=== PATIENT | male | born 1990 | race Two or more races ===

== ENCOUNTER 2024-03-06 19:42 | Emergency (ER) | payer OTHER ==
[~2024-03-06] VITALS: Ht 144.8 cm; Wt 41.7 kg
--- NOTE | 2024-03-06 20:18 | ED.PDOC ---
History of Present Illness(SKN HPI Comments HPI: Poor Historian: 33-year-old male with history of cerebral palsy presents to the emergency department with his mother for evaluation of some mass on his left buttock that is bleeding. Mother states that the stool is brown in color. However there is some oozing of blood from this swelling area on his left buttock area. Patient had a nonspecific mild fall few days ago. They have noticed this swelling in the last three days. Vitals: Temp:97.9 F Heart rate: 122 RR: 18 BP: 122/69 02 sat: 95 % on room air PMH: cerebral palsy PSH: denies social history: DENIES tobacco use, DENIES ETOH use, DENIES drug use medications: vitamins allergies: NKDA REVIEW OF SYSTEMS: CONSTITUTIONAL: Denies acute: fever, diaphoresis, HEAD: Denies acute: headache, photophobia Eyes: Denies acute: Double vision, vision loss, eye pain, eye discharge. EARS: Denies acute: tinnitus, hearing loss, ear discharge, ear pain, THROAT: Denies acute: sore throat, swelling, difficulty swallowing , pain with swallowing, change in voice. NECK: Denies acute: neck pain, neck swelling, stiff neck. HEART: Denies acute : chest pain, palpitations, LUNGS: Denies acute: SOB, wheezing, cough, hemoptysis ABDOMEN: Denies acute: abdominal pain, Nausea, Vomiting, diarrhea, melena , hematemesis, hematochezia SKIN: Denies acute: rash, redness, lesions, itchiness. EXTREMITIES: Denies acute: calf pain, numbness, tingling, weakness, denies pain in extremity. Denies acute: Low back pain. Neuro: Denies acute: focal neurological deficit, motor or sensory focal neurological deficit, tremors, seizure like activity, confusion, dizziness, change in mental status, loss of bowel or bladder function, cauda equina like symptoms. : Denies acute: dysuria, hematuria, flank pain, increase in urinary frequency. PSYCH: Denies acute: hallucination, suicidal ideation, homicidal ideation. PHYSICAL EXAM: General: Mild to moderate acute distress, awake and alert. Head: normocephalic, atraumatic. Neck: supple, trachea is midline, no swelling. Throat: Normal phonation. Eyes:, no erythema, no purulent discharge, no proptosis, no icterus. Heart: regular tachycardia, no significant murmur appreciated. Lungs: no apparent respiratory distress, No wheezing, no rhonchi, no crackles. No stridors Clear to auscultation bilaterally. Abdomen: non tender to palpation, non distended, soft, no guarding, no rebound, + bowel sounds. Neuro: Awake, Alert, oriented to name, self, situation, follows commands GCS=15. Speech is normal. Skin: no petechia, no purpura, no cyanosis, non-pale, not jaundice. Lower extremities: --no - Pitting edema no deformity, no focal swelling, no calf TTP. Makes eye contact. moves all four extremities. Face: no apparent facial droop. Ambulating in the ED independently. Evaluation of the area of complaint. There is noted swelling the appears to be hematoma has some blood drainage from the center of the mass of the bottom of his left buttock. The area is tender to palpation and erythematous. Some parts of the mass/hematoma are fluctuant. Chief Complaint: abscess Time Seen by MD: 20:37 Primary Care Provider: LINDA History of Present Illness: Nurses Notes, Allergies Allergies: Coded Allergies: NO KNOWN ALLERGIES (Unverified , 04/13/13) Information Source: Patient, Relative (Mother) Mode of Arrival: Ambulatory Brought in by: mother Past Medical History Past Medical History (Other): cerebral palsy Surgical History: Denies all surgeries Family History Family History: Unobtainable Social History Smoker: Quit Greater Than 1 Year Alcohol: Denies ETOH Use Drugs: Denies Drug Use Lives In: Home Was a procedure done? Was a procedure done?: No Differential Diagnosis (INTG) Differential Diagnosis: Cellulitis, Hematoma, Insect Envenomation, Puncture Wound Differential Diagnosis: Abscess, Gangrene Differential Diagnosis: Neurovascular Injury Abscess: Bacteremia Differential Diagnosis: Osteomyelitis X-Ray, Labs, Meds, VS Vital Signs Date Time Temp Pulse Resp B/P (MAP) Pulse Ox O2 Delivery O2 Flow Rate FiO2 03/06/24 22:03 97.6 85 16 96/55 (69) 97 97.6 03/06/24 20:04 97.9 122 18 122/69 (86) 95 Lab Test 03/06/24 20:55 Range/Units White Blood Count 8.8 4.4-10.8 10^3/uL Red Blood Count 5.27 4.5-5.90 10^6/uL Hemoglobin 15.0 13.5-17.5 g/dL Hematocrit 43.8 41.0-53.0 % Mean Corpuscular Volume 83.1 80.0-100.0 fL Mean Corpuscular Hemoglobin 28.5 28.0-32.0 pg Mean Corpuscular Hemoglobin Concent 34.3 32.0-36.0 g/dL Red Cell Distribution Width 13.0 11.8-14.3 % Platelet Count 442 140-450 10^3/uL Mean Platelet Volume 8.1 6.9-10.8 fL Neutrophils (%) (Auto) 83.4 H 37.0-80.0 % Lymphocytes (%) (Auto) 9.1 L 10.0-50.0 % Monocytes (%) (Auto) 7.2 0.0-12.0 % Eosinophils (%) (Auto) 0.1 0.0-7.0 % Basophils (%) (Auto) 0.2 0.0-2.0 % Neutrophils # (Auto) 7.3 1.6-8.6 10 ^3/uL Lymphocytes # (Auto) 0.8 0.4-5.4 10 ^3/uL Monocytes # (Auto) 0.6 0-1.3 10 ^3/uL Eosinophils # (Auto) 0 0-0.8 10 ^3/uL Basophils # (Auto) 0 0-0.2 10 ^3/uL Nucleated Red Blood Cells 0.1 % Sodium Level 138 136-145 mmol/L Potassium Level 3.4 L 3.5-5.1 mmol/L Chloride Level 101 98-107 mmol/L Carbon Dioxide Level 31 20-31 mmol/L Anion Gap 6 5-15 Blood Urea Nitrogen 21 9-23 mg/dL Creatinine 0.88 0.700-1.30 mg/dL Glomerular Filtration Rate Calc 117 >90 mL/min BUN/Creatinine Ratio 23.9 H 10.0-20.0 Serum Glucose 103 74-106 mg/dL Lactic Acid Level 1.3 0.4-2.0 mmol/L Calcium Level 9.2 8.7-10.4 mg/dL Total Bilirubin 0.4 0.2-1.0 mg/dL Aspartate Amino Transferase (AST) 19 13-40 U/L Alanine Aminotransferase (ALT) 12 7-40 U/L Alkaline Phosphatase 106 46-116 U/L Total Protein 6.6 5.7-8.2 g/dL Albumin 4.2 3.2-4.8 g/dL Lipase 36 12-53 U/L Current Medications Medications (Trade) Dose Ordered Sig/Tony Route Start Time Stop Time Status Last Admin Acetaminophen/ Hydrocodone Bitart ([place] 5/325MG Tab) 1 tab ONCE ONCE PO 03/06/24 20:30 03/06/24 20:31 DC 03/06/24 20:52 [place] [id number] Ph: [phone] DIAGNOSTIC IMAGING Diagnostic Imaging Report : [id number] Signed PATIENT: ELIZABETH BIANCHI ACCT: [id number] UNIT: [id number] : 1990 LOC: ER ROOM / BED: / AGE / SEX: 33 / M ADM STATUS: REG ER SERVICE 18 ORDERING PHYSICIAN: LUCIA OCAMPO DO PROCEDURE(s): ABPLIV - CT AB PEL WITH IV CON ONLY REASON: buttock abscess/hematoma. ORDER NUMBER(s): [id number], ACCESSION NUMBER(s): [id number] Exam: CT CT AB PEL WITH IV CON ONLY History: buttock abscess/hematoma. Comparison Study: None TECHNIQUE: A digital rolling mill operator image was obtained. During the uneventful, intravenous administration of contrast material, multislice data acquisition was obtained through the abdomen and pelvis. The data set was subsequently reconstructed into axial images. Images reviewed on a wrist examination is an examination of axial and multiplanar reformations using a variety of window levels and settings. RADIATION DOSE: DLP 291.29 mGy.cm; CTDI vol 5.41 mGy. Findings: Lungs: The lung bases are clear. Heart: The visualized heart is unremarkable. No cardiomegaly or pericardial effusion. Liver: Unremarkable. Gallbladder: Unremarkable. Spleen: Unremarkable Pancreas: Unremarkable Adrenals: Unremarkable Kidneys: Right renal cyst. Bilateral nonobstructive nephrolithiasis. GI tract: Gaseous dilated small bowel and colon. : Unremarkable. Vasculature: Unremarkable Lymphadenopathy: Absent Peritoneum: No ascites Musculoskeletal: Unremarkable Soft tissues: 7.8 x 1.6 cm left buttock fluid collection with rim enhancement. Impression: 1. Gaseous dilated small bowel and colon favored to reflect ileus and less likely small bowel obstruction. 2. 7.8 x 1.6 cm left buttock fluid collection with rim enhancement favored to reflect an abscess. ATED BY: AMBER MATHEW DO DICTATED DATE/TIME: 03/06/242148 SIGNED BY: AMBER MATHEW DO SIGNED DATE/TIME: 03/06/242148 CC: Time of 1ST Reevaluation: 22:47 Reevaluation 1ST: Unchanged Patient Education/Counseling: Diagnosis, Treatment Family Education/Counseling: No Family Present Comments Patient presented with the above HPI.---abscess---workup was initiated. patient was found with the above mentioned diagnosis. Patient was given: Fluids, pain medication, antibiotics. Patient ED course and VS have been stabilized. Patient has been reassessed in the ED and remained in a stable condition. Pertinent incidental findings were discussed with the patient and/or family. Patient/family voices understanding and is agreeable with plan. Patient has been observed in the ED adequate length of time to insure improvement/stability. patient was admitted to the medicine team for further evaluation and treatment of their presentation. All the reports of any imaging studies that were ordered by myself were reviewed by myself. Departure 1 Departure Time of Disposition: 21:53 Impression: Primary Impression: Left buttock abscess Disposition: ADMITTED INPATIENT Admit to: [facility] Condition: Guarded Discharged With: Self, Relative (Mother) Critical Care Note Critical Care Time?: No I personally scribed for LUCIA OCAMPO DO ([email or web address]) on 03/06/24 at 20:18. Electronically submitted by Tiesha Sandoval ([email or web address]). I personally scribed for LUCIA OCAMPO DO ([email or web address]) on 03/06/24 at 20:39. Electronically submitted by Tiesha Sandoval ([email or web address]). I personally scribed for LUCIA OCAMPO DO ([email or web address]) on 03/06/24 at 21:53. Electronically submitted by Tiesha Sandoval ([email or web address]). LUCIA OCAMPO DO Mar 06, 2024 20:18
[2024-03-06] MEDS: HYDROcodone-ACET 5/325MG TAB PO ONE (20:52)
[2024-03-06 21:24] LABS: Basophils # (auto) 0 10 ^3/uL (0-0.2); Basophils % (auto) 0.2 % (0.0-2.0); Eosinophils # (auto) 0 10 ^3/uL (0-0.8); Eosinophils % (auto) 0.1 % (0.0-7.0); Hematocrit 43.8 % (41.0-53.0); Lymphocytes # (auto) 0.8 10 ^3/uL (0.4-5.4); Lymphocytes % (auto) 9.1 % (10.0-50.0); Mean Corpuscular Hemoglobin 28.5 pg (28.0-32.0); Mean Corpuscular Hgb Conc. 34.3 g/dL (32.0-36.0); Mean Corpuscular Volume 83.1 fL (80.0-100.0); Monocytes # (auto) 0.6 10 ^3/uL (0-1.3); Monocytes % (auto) 7.2 % (0.0-12.0); Neutrophils # (auto) 7.3 10 ^3/uL (1.6-8.6); Neutrophils % (auto) 83.4 % (37.0-80.0); Nucleated Red Blood Cells % 0.1 %; Platelet Count (auto) 442 10^3/uL (140-450); Red Blood Cells 5.27 10^6/uL (4.5-5.90); White Blood Cell 8.8 10^3/uL (4.4-10.8)
[2024-03-06 21:32] LABS: Alanine Aminotransferase 12 U/L (7-40); Albumin 4.2 g/dL (3.2-4.8); Alkaline Phosphatase 106 U/L (46-116); Anion Gap 6 (5-15); Aspartate Aminotransferase 19 U/L (13-40); BUN/Creatinine Ratio 23.9 (10.0-20.0); Bilirubin, Total 0.4 mg/dL (0.2-1.0); Blood Urea Nitrogen 21 mg/dL (9-23); Calcium 9.2 mg/dL (8.7-10.4); Carbon Dioxide 31 mmol/L (20-31); Chloride 101 mmol/L (98-107); Glucose 103 mg/dL (74-106); Lipase 36 U/L (12-53); Potassium 3.4 mmol/L (3.5-5.1); Sodium 138 mmol/L (136-145); Total Protein 6.6 g/dL (5.7-8.2)
[2024-03-06] MEDS: IOHEXOL 300 MG/ML 100ML BOTTLE IJ ONE (21:40)
--- NOTE | 2024-03-06 21:51 | DVH ---
Exam: CT CT AB PEL WITH IV CON ONLY History: buttock abscess/hematoma. Comparison Study: None TECHNIQUE: A digital it technical support specialist image was obtained. During the uneventful, intravenous administration of c ontrast material, multislice data acquisition was obtained through the abdomen and pelvis. The data s et was subsequently reconstructed into axial images. Images reviewed on a wrist examination is an exa mination of axial and multiplanar reformations using a variety of window levels and settings. RADIATION DOSE: DLP 291.29 mGy.cm; CTDI vol 5.41 mGy. Findings: Lungs: The lung bases are clear. Heart: The visualized heart is unremarkable. No cardiomegaly or pericardial effusion. Liver: Unremarkable. Gallbladder: Unremarkable. Spleen: Unremarkable Pancreas: Unremarkable Adrenals: Unremarkable Kidneys: Right renal cyst. Bilateral nonobstructive nephrolithiasis. GI tract: Gaseous dilated small bowel and colon. : Unremarkable. Vasculature: Unremarkable Lymphadenopathy: Absent Peritoneum: No ascites Musculoskeletal: Unremarkable Soft tissues: 7.8 x 1.6 cm left buttock fluid collection with rim enhancement. Impression: 1. Gaseous dilated small bowel and colon favored to reflect ileus and less likely small bowel obstruc tion. 2. 7.8 x 1.6 cm left buttock fluid collection with rim enhancement favored to reflect an abscess.
[2024-03-06 22:03] VITALS: BP 96/55; PULSE 85; RESP 16; TEMP 97.6; O2SAT 97
[2024-03-06] MEDS: PIPERACILLIN-TAZOB 3.375GM 100 ML IV ONE (22:48)
[2024-03-06] MEDS: SODIUM CHLORIDE 0.9% 500 ML IV ONE (23:57)
[2024-03-07] MEDS ORDERED: BACDST PO (02:10)
== END 2024-03-07 02:29 | disposition home or self-care (01) ==
LOC: ER 19:42
DX: L02.31 Cutaneous abscess of buttock (principal); Z88.8 Allergy status to other drugs, medicaments and biological substances
CPT/HCPCS: 36415; 74177; 80053; 83605; 83690; 85025; 96361; 96365; 99285; J2543; J7040; Q9967